=== PATIENT | female | born 1965 | race Asian ===

== ENCOUNTER 2016-11-04 12:45 | Emergency (ER) | payer OTHER ==
[~2016-11-04] VITALS: Ht 144.8 cm; Wt 46.3 kg
[~2016-11-04 12:45] MED LIST: ANTIVERT12.5 MG PO; LEVOTHYROXIN0.025 M2 PO; ZYPREXA7.5 MG PO; [UNRECOGNIZED DRUG - OTHER] OD
[2016-11-04 15:46] VITALS: BP 112/80
== END 2016-11-04 15:46 | disposition home or self-care (01) ==
LOC: ED 12:45
DX: S61.421A Laceration with foreign body of right hand, initial encounter (principal); E78.00 Pure hypercholesterolemia, unspecified; X58.XXXA Exposure to other specified factors, initial encounter; Y93.89 Activity, other specified; Y92.89 Other specified places as the place of occurrence of the external cause; Y99.8 Other external cause status
CPT/HCPCS: 90715; J2001